=== PATIENT | female | born 1995 | race Caucasian/White ===

== ENCOUNTER 2018-09-14 00:35 | Emergency (ER) | payer MEDICAID ==
[~2018-09-14] VITALS: Wt 56.0 kg
[2018-09-14] MEDS ORDERED: ACETAMINOPHEN 325 MG TAB PO ONE (02:30)
--- NOTE | 2018-09-14 03:38 | ERD ---
ER Documentation Chief Complaint Chief Complaint CP X'S 2 HOURS HPI This is a 23-year-old female with no significant past medical history currently at approximately 22 weeks gestational age who is presenting with left chest and shoulder pain with a sharp aching tingling sensation to the upper arm, exacerbated by movement of the left shoulder. The patient has not noticed any swelling or redness or induration or purulence or fluctuance. She does not endorse any obvious trauma or injury. She does not believe that she hurt herself. She does not endorse any extra exertion. She does not endorse any heavy lifting. The patient's symptoms are not associated with shortness of breath. The patient does not have pleuritic pain. The patient is breathing comfortably and is in no distress in the room. The patient does not have any diaphoresis. She does not have any lightheadedness or dizziness. She does not endorse nausea or vomiting. The patient denies feeling sick recently. The patient denies fever or chills. The patient has had no headache or vision changes. The patient does not endorse neck or back pain. The patient denies abdominal pain. The patient denies changes to bowel movements or urination. The patient has not had any vaginal discharge or burning or bleeding or loss of fluid. She has not had any c ontractions. She is continued to feel the baby move. The patient has had no focal deficits. The patient has had no weakness or numbness or tingling to the face or extremities. ROS All systems reviewed and are negative except as per history of present illness. Medications Home Meds Active Scripts Acetaminophen* (Tylophen*) 500 Mg Capsule, 1 CAP PO Q6H PRN for PAIN AND OR ELEVATED TEMP, #20 CAP Prov:FARA XIONG MD 09/14/18 Allergies Allergies: Coded Allergies: No Known Allergy (Unverified , 09/14/18) PMhx/Soc Medical and Surgical Hx: pt denies Medical Hx, pt denies Surgical Hx History of Surgery: No Anesthesia Reaction: No Hx Neurological Disorder: No Hx Respiratory Disorders: No Hx Cardiac Disorders: No Hx Psychiatric Problems: No Hx Miscellaneous Medical Probl: No Hx Alcohol Use: No Hx Substance Use: No Hx Tobacco Use: No Smoking Status: Never smoker FmHx Family History: No diabetes Physical Exam Vitals Vital Signs Date Temp Pulse Resp B/P (MAP) Pulse Ox O2 O2 Flow FiO2 Time Delivery Rate 09/14/18 76 15 102/62 100 Room Air 04:02 (75) 09/14/18 98.5 94 18 110/84 100 00:53 (93) Physical Exam Const: No apparent distress, well-developed, well-nourished Head: Normocephalic, Atraumatic Eyes: Normal Conjunctiva. Extraocular movements intact. Pupils equal, round and reactive to light ENT: Normal External Ears, Nose and Mouth. Neck: Full range of motion. No meningismus. Resp: Clear to auscultation bilaterally, No wheezes, rales or rhonchi Cardio: Regular rate and rhythm. No murmurs, rubs or gallops Abd: Soft, non tender. Gravid uterus. Normal bowel sounds Skin: No petechiae or rashes Back: No midline tenderness. No CVA tenderness Ext: No cyanosis, or edema Neur: Awake and alert, oriented 4. Cranial nerves intact. No facial droop. Normal strength, sensation and coordination. Psych: Normal Mood and Affect Results 24 hrs Current Medications Medications Dose Sig/Capri Start Time Status Last (Trade) Ordered Route PRN Stop Time Admin Dose Reason Admin 650 mg ONCE ONCE 09/14/18 DC 09/14/18 Acetaminophen PO 02:30 02:28 (Tylenol 09/14/18 02:31 Tab) Procedures/MDM MDM The patient's presentation warrants further investigation. Previous medical records, if available, were reviewed. EKG EKG read by me: Rate/Rhythm: Regular rate and rhythm at a rate of 87 bpm with a sinus arrhythmia Intervals: Normal [place]: Normal Impression: No evidence of acute ischemia or arrhythmia TREATMENT/DISPOSITION The patient was first evaluated in OB triage to assess viability. The patient had a reassuring exam by the obstetric team and was sent to the ER for further assessment of her chest pain. The patient's symptoms are most consistent with a musculoskeletal etiology. The patient's pain is palpable and reproducible on exam and is exacerbated by movement of the left shoulder. The patient does not endorse any trauma or injury. I do not see any evidence concerning for fracture or dislocation. I do not see any evidence of soft tissue infection. The patient's symptoms are not consistent with a DVT. The patient is not tachypneic or hypoxic. The patient is breathing comfortably and without pleuritic pain. The patient is not on hormonal therapy. The patient has no history of clotting or bleeding disorders. The patient has no calf t enderness. She does not have any leg swelling. She is less than 50 years old. She has not had any recent surgery or trauma. The patient has had no hemoptysis. The patient's PERC rule is negative. The chances of this being a pulmonary embolism are less than 2%. I have very low suspicion for pulmonary embolism. The patient's EKG is reassuring. I have low suspicion for acute coronary syndrome. The risks and benefits of an x-ray and were discussed with the patient. The patient ultimately declined the study. The patient's lung exam is normal. She has clear lungs. There are no wheezing or rales or rhonchi. I have low suspicion for pneumonia or pneumothorax or pleural effusions or pulmonary edema. I have low suspicion for thoracic aortic aneurysm or dissection. She does not endorse any nausea or vomiting. She has not had any hemoptysis or hematemesis. I do not suspect esophageal tear or rupture. The patient has no clinical signs of pericardial effusion or tamponade. I have decreased suspicion of viscus perforation as possible referred pain. The patient does not have a history of heart failure and I have low suspicion for this. The patient does not have a diagnosis of COPD and is not wheezing today. The patient was treated with a dose of Tylenol in the ER with improvement of her pain. The patient understands that she should not be utilizing any NSAID medications. Upon reevaluation of the patient, symptoms have improved. No emergent diagnoses were identified. At this time, I feel that the patient stable for discharge. The patient was instructed to follow-up with a primary care physician in 1-3 days. The patient will be given strict precautions with which to return to the emergency department. Prescriptions: Tylenol The patient's blood pressure was elevated at greater than 120/80 while in the emergency department. The patient was otherwise stable with no evidence of hypertensive urgency or emergency. The patient does not require admission for blood pressure control. I have discussed with the patient the risks of hypertension. I have instructed the patient to return to the ER for any new or worsening symptoms including chest pain, shortness of breath, headache, blurred vision, confusion, nausea, vomiting or LOC. I have advised the patient to follow up with the primary care physician for outpatient monitoring and treatment for hypertension in 1-3 days. Disclaimer: Inadvertent spelling and grammatical errors are likely due to EHR/dictation software use and do not reflect on the overall quality of patient care. Note that the electronic time recorded on this note does not necessarily reflect the actual time of the patient encounter. Departure Diagnosis: Primary Impression: Nonspecific chest pain Additional Impressions: Chest wall pain Shoulder pain Chronicity: acute Laterality: left Qualified Codes: M25.512 - Pain in left shoulder Second trimester Condition: Stable FARA XIONG MD Sep 14, 2018 03:38
[2018-09-14] MEDS ORDERED: ACET500C5 PO (03:39)
[2018-09-14 04:02] VITALS: BP 102/62; PULSE 76; RESP 15
== END 2018-09-14 04:03 | disposition home or self-care (01) ==
LOC: E/R 00:35
DX: O99.89 Other specified diseases and conditions complicating pregnancy, childbirth and the puerperium (principal); R07.9 Chest pain, unspecified; M25.512 Pain in left shoulder; Z3A.22 22 weeks gestation of pregnancy
CPT/HCPCS: 93005; Z7502; Z7610

== ENCOUNTER 2018-09-14 01:03 | Outpatient (CLI) | payer MEDICAID ==
--- NOTE | 2018-09-14 01:19 | PN ---
Triage Information Date/Time Reason for visit: Weeks of Gestation 22 weeks /Para Objective Heart Rate Comments Doptones: + Contractions: None Disposition: Discharge Assessment/Plan 23 y/o at 22 weeks with chestpain -no obstetrical issues -discharge to ER for further evaluation as indicated WILLIS ADLER Sep 14, 2018 01:19
--- NOTE | 2018-09-14 01:30 | TRIAGE ---
OB Triage Datetime Report Generated by CPN: 09/14/2018 01:29 Datetime: 09/14/2018 01:25 Time of Arrival: 09/14/2018 00:48 Arrived By: Wheelchair Arrived From: Emergency Dept Chief Complaint: Left shoulder and neck pain Movement: Present Contractions: Denies/Absent Rupture of Membranes: Denies Vaginal Discharge: Denies Recent Sexual Intercouse: Denies Abdominal Trauma: Not Applicable Patient Complaints: Headache Time Provider Notified: 09/14/2018 01:09 Provider Notified: Uaje Initial Plan: Heart Tones, send to ED Datetime: 09/14/2018 01:15 Stage of : OB Triage Assessment Type: Triage Maternal Assessment Level of Consciousness: Fully Conscious Headache: Denies Blurred Vision: No Respiratory Effort: Unlabored; Regular Rhythm; Equal Expansion Nausea/Vomiting: Denies RUQ Epigastric Pain: Denies Facial Edema: None Temperature Route: Oral Fall Risk Assessment History of Falling: (0) No Secondary Diagnosis: (0) No Ambulatory Aid: (0) Bedrest/Nurse Assist IV Therapy: (0) No Gait: (0) Normal/Bedrest/Immobile Mental Status: (0) Oriented to Own Ability Fall Score: 0 Fall Risk Score Definition: No Risk: No action required Datetime: 09/14/2018 01:00 Stage of : OB Triage
[2018-09-14] MEDS ORDERED: ACET500C5 PO (03:39)
== END 2018-09-14 01:31 | disposition home or self-care (01) ==
LOC: OBT 01:03 → L-D 01:11 → OBT 01:31
PROVIDERS: ATTEND Obstetrics & Gynecology
DX: O26.892 Other specified pregnancy related conditions, second trimester (principal); R07.9 Chest pain, unspecified; Z3A.22 22 weeks gestation of pregnancy
CPT/HCPCS: G0463

== ENCOUNTER 2019-01-03 00:05 | Inpatient (IN) | payer MEDICAID, OTHER ==
[~2019-01-03] VITALS: Ht 149.9 cm; Wt 63.4 kg
[~2019-01-03 00:05] MED LIST: ACET500C5 PO
[2019-01-03 00:23] VITALS: Ht 149.9 cm; Wt 63.4 kg
[2019-01-03] MEDS ORDERED: FER325 PO (00:23)
[2019-01-03] MEDS ORDERED: CALC600T24 PO (00:23)
[2019-01-03] MEDS ORDERED: PREN-93 PO (00:23)
[2019-01-03 00:24] VITALS: BP 120/81; PULSE 90; RESP 20
[2019-01-03] MEDS ORDERED: LACTATED RINGER'S 1,000 ML IV PRN (00:41)
[2019-01-03] MEDS ORDERED: IBUPROFEN 600 MG TAB PO PRN (01:00)
[2019-01-03] MEDS ORDERED: METHYLERGONOVINE 0.2 MG INJ IM PRN ×2 (01:00→04:30)
[2019-01-03] MEDS ORDERED: OXYTOCIN 30 UNITS/LR 500 ML IV SCH ×4 (01:00→04:22)
[2019-01-03] MEDS ORDERED: OXYTOCIN 30 UNITS/LR 500 ML IV PRN ×2 (01:00→04:30)
[2019-01-03] MEDS ORDERED: CARBOPROST 250 MCG INJ IM PRN ×2 (01:00→04:30)
[2019-01-03] MEDS ORDERED: LIDOCAINE 1% (MPF) 30 ML INJ INJ PRN (01:00)
[2019-01-03] MEDS ORDERED: MISOPROSTOL 200 MCG TAB PR PRN ×2 (01:00→04:30)
[2019-01-03] MEDS ORDERED: BUTORPHANOL 2 MG INJ IV PRN (01:00)
[2019-01-03] MEDS: LACTATED RINGER'S 1,000 ML IV SCH ×3 (01:10→16:41)
[2019-01-03] MEDS ORDERED: LACTATED RINGER'S 1,000 ML IV SCH ×2 (01:50→04:22)
[2019-01-03] MEDS ORDERED: AZITHROMYCIN 500MG/NS (PMX) 250 ML IV SCH (02:00)
[2019-01-03] MEDS ORDERED: CEFAZOLIN 2 GM/50 ML (PMX) 50 ML IVPB SCH (02:00)
[2019-01-03] MEDS ORDERED: LACTATED RINGER'S 1,000 ML IV ONE (02:13)
--- NOTE | 2019-01-03 02:13 | PREAC ---
Date/Time of Note Date/Time of Note DATE: 01/03/19 TIME: 02:11 Anesthesia Eval and Record Evaluation Time Pre-Procedure Interview DATE: 01/03/19 TIME: 02:11 Age 23 Sex female NPO: 6 hrs (light meal ) Preoperative diagnosis intrauterine ; breech; Planned procedure primary c section Past Medical History Past Medical History: Includes : Gestational age: (39.2) Surgery & Anesthesia Issues No known issue Meds Anticoagulation: No Beta Khushi within 24 hr: No Reason Beta Khushi not given: Pt. not on B-Khushi Active Scripts Acetaminophen* (Tylophen*) 500 Mg Capsule, 1 CAP PO Q6H PRN for PAIN AND OR ELEVATED TEMP, #20 CAP Prov:FARA XIONG MD 09/14/18 Reported Medications Calcium Carbonate* (Calcium Carbonate*) 600 MG Ca Tab, 600 MG PO DAILY, TAB 01/03/19 Vit No.124/Iron/FA ( Vitamin Tablet) 1 Each Tablet, 1 EACH PO DAILY, TAB 01/03/19 Ferrous Sulfate* (Ferrous Sulfate*) 325 Mg Tabec, 325 MG PO DAILY, TAB 01/03/19 Current Medications Lactated Ringer's 1,000 ml @ 125 mls/hr Q8H IV Last administered on 01/03/19at 01:10; Admin Dose 125 MLS/HR; Start 01/03/19 at 00:41 Butorphanol Tartrate (Stadol) 2 mg Q2H PRN IV .PAIN SCALE 6-10; Start 01/03/19 at 01:00 Lidocaine (Xylocaine 1% (Mpf)) 30 ml ONCE PRN INJ .EPISIOTOMY; Start 01/03/19 at 01:00 Oxytocin/Lactated Ringer's 500 ml @ 500 mls/hr ONCE POST IV ; Start 01/03/19 at 01:00 Oxytocin/Lactated Ringer's 500 ml @ 125 mls/hr POST IV ; Start 01/03/19 at 01:00 Ibuprofen (Motrin) 600 mg ONCE PRN PO .PAIN 1-5; Start 01/03/19 at 01:00 Lactated Ringer's 1,000 ml @ 2,000 mls/hr Q30M PRN IV .ANESTHESIA; Start 01/03/19 at 00:41 Oxytocin/Lactated Ringer's 500 ml @ 0 mls/hr ONCE PRN IV .VAGINAL BLEEDING; Start 01/03/19 at 01:00 Methylergonovine Maleate (Methergine) 0.2 mg ONCE PRN IM .VAGINAL BLEEDING; Start 01/03/19 at 01:00 Carboprost Tromethamine (Hemabate) 250 mcg ONCE PRN IM .VAGINAL BLEEDING; Start 01/03/19 at 01:00 Misoprostol (Cytotec) 1,000 mcg ONCE PRN NC .VAGINAL BLEEDING; Start 01/03/19 at 01:00 Oxytocin/Lactated Ringer's 500 ml @ 0 mls/hr FOR AUGMENTATION IV ; Start 01/03/19 at 01:00 Lactated Ringer's 1,000 ml @ 125 mls/hr Q8H IV ; Start 01/03/19 at 01:50 Cefazolin Sodium/ Dextrose 50 ml @ 100 mls/hr ONCE IVPB ; Start 01/03/19 at 02:00 Azithromycin 250 ml @ 250 mls/hr ONCE IV ; Start 01/03/19 at 02:00 Meds reviewed: Yes Allergies Coded Allergies: No Known Allergy (Unverified , 01/03/19) Allergies Reviewed: Yes Labs/Studies Labs Reviewed: Reviewed by anesthesiologist Result Diagram: 01/03/19 0106 Laboratory Tests 01/03/19 01:06 Blood Bank Test 01/03/19 01:06 Antibody Screen NEGATIVE Blood Type A POSITIVE Rh Immune Globulin Candidate NO test: N/A Pre-procedure Exam Last vitals Vital Signs Date Temp Pulse Resp B/P (MAP) Pulse Ox O2 O2 Flow FiO2 Time Delivery Rate 01/03/19 98.5 90 20 120/81 Room Air 00:24 (94) Airway: Adequate mouth opening, Adequate thyromental dist Mallampati: Mallampati II Teeth: Normal Lung: Normal Heart: Normal ASA Physical Status ASA physical status: 2 Emergency: None Planned Anesthetic Neuraxial: Spinal Planned Pain Management Sub-arachniod narcotics, Parenteral pain med Pre-operative Attestations Prior to commencing anesthesia and surgery, the patient was re-evaluated, there was verification of: *The patient's identity *The results of appropriate recent lab work and preoperative vital signs *The above evaluation not changing prior to induction *Anesthetic plan, risk benefits, alternative and complications discussed with patient/family; questions answered; patient/family understands, accepts and wishes to proceed. CORONA AQUINO MD Jan 03, 2019 02:13
--- NOTE | 2019-01-03 02:17 | HP ---
Date/Time of Note Date/Time of Note DATE: 01/03/19 TIME: 02:12 OB - History Hx of Present Free Text/Dictation 23-year-old 1 para 0 at 36 weeks and 6 days of gestation with estimated date of delivery January 25, 2019 presents with spontaneous rupture membranes Patient reports contractions, denies vaginal bleeding, reports positive movement GBS is negative Estimated Due Date: Jan 25, 2019 : 1 Para: 0 Care: Good Care Obstetrical Complications: None Medical Complications: None Past Family/Social History * Past Medical, Surgical, Family and Obstetric Histories reviewed from chart. OB Admission Exam Vital Signs Vital Signs Vital Signs Date Temp Pulse Resp B/P (MAP) Pulse Ox O2 O2 Flow FiO2 Time Delivery Rate 01/03/19 98.5 90 20 120/81 Room Air 00:24 (94) Physical Exam HEENT: WNL Heart: Rhythm Normal Lungs: Clear, Equal Abdomen: WNL Extremities: Normal Reflexes: Normal Cervical Dilatation: 2cm Effacement: 50% Station: -3 Membranes: Ruptured Amniotic Fluid: Clear Heart Rate: 140's Accelerations: Accelerations Present Decelerations: No Decelerations Varibility: Moderate Contractions on Admission: < 5 Minutes Apart Intensity: Moderate Last 72 hours Lab Results CBC & BMP 01/03/19 01:06 PROCEDURE: US OB > 14 weeks. CLINICAL INDICATION: Labor TECHNIQUE: Multiple sonographic images of the pelvis were obtained. The images were reviewed on a PACS workstation. COMPARISON: US 09/16/2018 FINDINGS: There is a single live intrauterine gestation. Cardiac activity is present with 144 beats per minute. Breech presentation. Measurements were made in order to determine age. The results are as follows: BPD = 9.14 cm 37 weeks 1 day HC = 32.07 cm 36 weeks 1 day AC = 33.31 cm 37 weeks 2 days FL = 7.15 cm 36 weeks 4 days Estimated gestational age of approximately 36 weeks 6 days. The estimated date of delivery is 01/25/2019. Estimated weight = 3073 grams (6 lb 12 oz), corresponding to 17th percentile. No anatomic abnormalities demonstrated. The placenta is posterior fundal. There is no evidence for an abruption or abeba centa previa. Amniotic fluid index = 1.6 cm. IMPRESSION: Single live intrauterine gestation measuring approximately 36 weeks 6 days. Estimated date of delivery 01/25/2019. Oligohydramnios with FLEX = 1.6 cm. RPTAT: [facility] Physician Sidney Date Time Electronically viewed and signed by Physician Sidney on 01/03/2019 01:55 xB/ CC: SENA MARTINS MD [phone] OB Assessment/Plan Reason for admission: rupture of membranes (Breech presentation) Other plan: Admit to labor and delivery Plan for primary for breech presentation All benefits and risks were discussed with the patient including but not limited to infection, bleeding which may require blood transfusion, trauma to other organs including bladder and bowel. Patient completely understands her plan of care and agrees to proceed Copies To: CC: JIMENEZ PIERCE MD ; SENA MARTINS MD Jan 03, 2019 02:17
[2019-01-03] MEDS ORDERED: CITRIC ACID/NA CITRATE 30 ML CUP PO ONE (02:30)
[2019-01-03] MEDS ORDERED: METOCLOPRAMIDE 10 MG INJ IV ONE (02:30)
[2019-01-03] MEDS ORDERED: FAMOTIDINE 20 MG INJ IV ONE (02:30)
[2019-01-03] MEDS ORDERED: morphine SULFATE/PF (10 MG/10 ML) INJ ONE (02:57)
[2019-01-03] MEDS ORDERED: ONDANSETRON 4 MG INJ ONE (03:23)
[2019-01-03] MEDS ORDERED: PROCHLORPERAZINE 10 MG INJ IV PRN (03:30)
[2019-01-03] MEDS ORDERED: DIPHENHYDRAMINE 50 MG INJ IV PRN ×2 (03:30→04:30)
[2019-01-03] MEDS ORDERED: ONDANSETRON 4 MG INJ IV PRN ×3 (03:30→04:30)
[2019-01-03] MEDS ORDERED: MEPERIDINE 25 MG INJ IV PRN (03:30)
[2019-01-03] MEDS ORDERED: FENTAnyl 50 MCG/ML VIAL IV PRN ×3 (03:30)
[2019-01-03] MEDS ORDERED: HYDROmorphONE 1 MG/5 ML IV SYRINGE IV PRN ×3 (03:30)
[2019-01-03] MEDS ORDERED: KETOROLAC 30 MG INJ IV PRN (03:30)
[2019-01-03] MEDS ORDERED: PHENYLephrine (100 MCG/ML) 10ML SYG ONE (03:50)
[2019-01-03] MEDS ORDERED: OXYTOCIN 30 UNITS/LR 500 ML IV ONE (03:53)
--- NOTE | 2019-01-03 04:22 | OPR ---
Operative Report Planned Procedure Free Text/Dictation 36 and 6 days of gestation with spontaneous rupture membranes and breech presentation in labor Procedure date Jan 03, 2019 Procedure(s) Primary low transverse section Performed by see signature line Farm Helper: MOSES CHUN MD Pre-procedure diagnosis 36 and 6 days of gestation with spontaneous rupture membranes and breech presentation in labor [id number] Anesthesia Type: Fifll1j spinal Post-Procedure Post-procedure diagnosis 36 and 6 days of gestation with spontaneous rupture membranes and monica breech presentation in labor Findings Live Baby [boy], Apgars [8] and [9], weight [5 pounds 7 ounces/2600 g], [Monica breech] presentation, cord around the neck x2 manually reduced. EBL 500 cc IV fluid 1800 cc Urine output 250 cc Estimated Blood Loss: 400 - 500 mls Specimen(s) none Grafts/Implant(s) none Complication(s) none Pt Condition post procedure: stable Disposition: PACU Procedure Description Patient was taken to the operating room after adequate amount of anesthesia was given patient was prepped and draped in normal sterile fashion Low transverse Pfannenstiel skin incision was made. Incision was carried through to the underlying layer of fascia using Bovie Fascia was incised in the midline and incision was extended bilaterally using Bovie Both anterior and posterior edge of the fascia were from underlying layer of rectus muscles Rectus muscles were in the midline and peritoneum was identified and entered sharply without any difficulty Peritoneum was extended bilaterally manually. An Cain retractor was placed A bladder flap was created. Then a low transverse uterine incision was made on the uterus Fetus was delivered from monica breech presentation and after 30 seconds delayed cord clamping the fetus was handed immediately to the waiting ICU team Placenta was delivered manually intact. Uterus was cleared off of all clots and debris Uterine incision was closed with 1 Vicryl suture in both running locked and a second layer imbricating fashion Multiple irrigations were performed and excellent hemostasis was noted. Both adnexa appeared normal Cain retractor was removed Peritoneal closure proceeded with 2-0 Vicryl in a running fashion. Rectus muscles were reapproximated with 2-0 Vicryl. Excellent hemostasis was confirmed Fascia was closed with 0 Vicryl suture in 2 separate segments in a running fashion Subcutaneous layer was closed with 0- plain suture in a continuous fashion Skin was closed with end-sorb taylor and Dermabond glue All sponge, lap, needle counts were reported to be correct Patient tolerated the procedure well and taken back to recovery room in a stable condition Copies To: CC: JIMENEZ PIERCE MD ; SENA MARTINS MD Jan 03, 2019 04:22
--- NOTE | 2019-01-03 04:27 | PAC ---
Date/Time of Note Date/Time of Note DATE: 01/03/19 TIME: 04:27 Post-Anesthesia Notes Post-Anesthesia Note Last documented vital signs Vital Signs Date Temp Pulse Resp B/P (MAP) Pulse Ox O2 O2 Flow FiO2 Time Delivery Rate 01/03/19 98.5 90 20 120/81 Room Air 00:24 (94) Activity: WNL Respiratory function: WNL Cardiovascular function: WNL Mental status: Baseline Pain reasonably controlled: Yes Hydration appropriate: Yes Nausea/Vomiting absent: Yes Comments BP: 101/60 HR: 80 RR: 15 T: 97.7 SaO2: 98% CORONA AQUINO MD Jan 03, 2019 04:27
[2019-01-03] MEDS ORDERED: ZOLPIDEM 5 MG TAB PO PRN (04:30)
[2019-01-03] MEDS ORDERED: BISACODYL 10 MG SUPP PR PRN (04:30)
[2019-01-03] MEDS ORDERED: NALOXONE (0.4 MG/ML) INJ IV PRN (04:30)
[2019-01-03] MEDS ORDERED: ACETAMINOPHEN 325 MG TAB PO PRN (04:30)
[2019-01-03] MEDS ORDERED: MAGNESIUM HYDROXIDE 30ML CUP PO PRN (04:30)
[2019-01-03] MEDS ORDERED: HYDROmorphONE 0.5 MG/0.5 ML SYG IV PRN ×2 (04:30)
--- NOTE | 2019-01-03 04:37 | TRIAGE ---
OB Triage Datetime Report Generated by CPN: 01/03/2019 04:36 Datetime: 01/03/2019 02:04 Assessment Type: Admission Assessment Vaginal Bleeding: None Maternal Assessment Level of Consciousness: Keenly Alert, Responsive DTR's/Clonus: DTRs 2+; No Clonus Headache: Denies Blurred Vision: No Respiratory Effort: Unlabored; Regular Rhythm; Equal Expansion Breath Sounds, Left: Clear and Equal Breath Sounds, Right: Clear and Equal Nausea/Vomiting: Denies RUQ Epigastric Pain: Denies Lower Extremities Edema: None Upper Extremities Edema: None Facial Edema: None Fall Risk Assessment History of Falling: (0) No Secondary Diagnosis: (0) No Ambulatory Aid: (0) Bedrest/Nurse Assist IV Therapy: (20) Yes Gait: (0) Normal/Bedrest/Immobile Mental Status: (0) Oriented to Own Ability Fall Score: 20 Fall Risk Score Definition: No Risk: No action required Pain Assessment Pain Scale: 4 Pain Presence: Intermittent Pain Type: Contraction Pain Location: Abdomen Datetime: 01/03/2019 01:00 Labor Evaluation Frequency: 2-5.5 Monitor Mode: External Duration (sec)2399: 40-110 Quality: Mild Pattern: Normal: <= 5 Contractions in 10 Minutes Resting Tone [place]: Relaxed Heart Rate FHR Baseline Rate: 130 Monitor Mode: External US Variability: Moderate 6-25 bpm Accelerations: 15X15 Decelerations: None Category: Category I Datetime: 01/03/2019 00:34 Vaginal Exam Dilatation (cms): 1.5 Effacement (%): 60 Station: -3 Exam By: ASMITA Naranjo Membrane Status: Ruptured Membranes Ruptured Date/Time: 01/02/2019 23:30 Membranes Rupture Method: Spontaneous Amniotic Fluid Color: Clear Amniotic Fluid Amount: Moderate Amniotic Fluid Odor: Normal Vaginal Bleeding: Scant Nitrazine: Positive Cervix, Consistency: Moderate Cervix, Position: Posterior Datetime: 01/03/2019 00:19 Time of Arrival: 01/03/2019 00:00 EGA: 39.1 Arrived By: Wheelchair Arrived From: Home Chief Complaint: Possible SROM with bleeding Movement: Present Contractions: Irregular Time Contractions Began: 01/03/2019 00:00 Rupture of Membranes: Unsure Vaginal Bleeding: Small Vaginal Discharge: Present Abdominal Trauma: Not Applicable Patient Complaints: Cramping; Other Time Provider Notified: 01/03/2019 00:43 Provider Notified: Initial Plan: Nitrazine, VE Datetime: 01/03/2019 00:13 Stage of : OB Triage Assessment Type: Triage Maternal Assessment Level of Consciousness: Keenly Alert, Responsive DTR's/Clonus: DTRs 2+; No Clonus Headache: Denies Blurred Vision: No Respiratory Effort: Unlabored; Regular Rhythm; Equal Expansion Breath Sounds, Left: Clear and Equal Breath Sounds, Right: Clear and Equal Nausea/Vomiting: Denies RUQ Epigastric Pain: Denies Lower Extremities Edema: None Degree: None Upper Extremities Edema: None Degree: None Facial Edema: None Temperature Route: Oral Fall Risk Assessment History of Falling: (0) No Secondary Diagnosis: (0) No Ambulatory Aid: (0) Bedrest/Nurse Assist IV Therapy: (0) No Gait: (0) Normal/Bedrest/Immobile Mental Status: (0) Oriented to Own Ability Fall Score: 0 Fall Risk Score Definition: No Risk: No action required Pain Assessment Pain Scale: 2 Pain Presence: Intermittent Pain Type: Cramping Pain Location: Abdomen Pain Relief Measures: Comfort Measures Datetime: 01/03/2019 00:11 Stage of : OB Triage Monitor Mode: External Contraction Comments: [place] applied Heart Rate FHR Baseline Rate: 130 Monitor Mode: External US Comments: EFM applied Datetime: 09/14/2018 01:25 EGA: 23.3 Datetime: 09/14/2018 01:16 Membranes Ruptured Date/Time: 01/02/2019 23:30 Presentation 'A': Breech Datetime: 09/14/2018 01:15 Fall Score: 0 Fall Risk Score Definition: No Risk: No action required
[2019-01-03 08:00] VITALS: BP 116/64; PULSE 75; RESP 20
[2019-01-03] MEDS: CEFAZOLIN 1 GM/50 ML (PMX) 50 ML IVPB SCH ×2 (12:18→21:33)
[2019-01-03] MEDS: KETOROLAC 30 MG INJ IV PRN (17:03)
[2019-01-03 20:15] VITALS: BP 112/76; PULSE 74; RESP 18
[2019-01-03] MEDS: LANOLIN HPA 1 PKT TOP PRN (21:34)
[2019-01-03] MEDS: SENNA/DOCUSATE NA (8.6MG/50MG) TAB PO PRN (21:34)
[2019-01-04] MEDS: LACTATED RINGER'S 1,000 ML IV SCH ×2 (00:41→07:36)
[2019-01-04] MEDS: KETOROLAC 30 MG INJ IV PRN (01:35)
[2019-01-04] MEDS ORDERED: OXYCODONE/ACETAMINOPHEN (5/325) TAB PO PRN (03:07)
[2019-01-04 03:41] VITALS: BP 107/64; PULSE 84; RESP 18
[2019-01-04] MEDS: CEFAZOLIN 1 GM/50 ML (PMX) 50 ML IVPB SCH (04:24)
[2019-01-04 08:00] VITALS: BP 105/88; PULSE 71; RESP 18
[2019-01-04] MEDS: SENNA/DOCUSATE NA (8.6MG/50MG) TAB PO PRN (08:50)
[2019-01-04] MEDS: OXYCODONE/ACETAMINOPHEN (5/325) TAB PO PRN ×2 (08:50→16:40)
[2019-01-04] MEDS: LANOLIN HPA 1 PKT TOP PRN (09:28)
--- NOTE | 2019-01-04 11:30 | QN ---
Documentation Comment POD#1 is stable afebrile tolerates diet No VB +Flatus +voids VS stable Gen NAD Abd soft NT ND Dressing to be removed Genitalia No blood at perineum --->Ambulation HILARIO ESCAMILLA M.D. Jan 04, 2019 11:30
[2019-01-04] MEDS: IBUPROFEN 600 MG TAB PO PRN ×2 (11:53→23:33)
[2019-01-04 16:00] VITALS: BP 103/69; PULSE 80; RESP 20
[2019-01-04 19:40] VITALS: BP 116/66; PULSE 82; RESP 17
[2019-01-05] MEDS: OXYCODONE/ACETAMINOPHEN (5/325) TAB PO PRN ×2 (00:27→11:33)
[2019-01-05 04:15] VITALS: BP 99/61; PULSE 80; RESP 17
[2019-01-05] MEDS: IBUPROFEN 600 MG TAB PO PRN ×3 (05:40→19:39)
[2019-01-05 08:00] VITALS: BP 108/62; PULSE 82; RESP 16
--- NOTE | 2019-01-05 09:42 | PD.PPDC ---
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 Instruction Condition [id number] Patient Condition: Euryh7i Fair Diet [id number] Diet: [id number] Resume Regular Diet Activity/Restrictions [id number] Activity: Mfccm4l Normal Activity May Shower [id number] Restrictions: Ixikh8i No Exercising No Lifting No Driving No Sexual Activity Nothing in the Vagina No [place] No Tampons, douche Follow-up Follow-up with Physician: 2, Week/Weeks Return to clinic for [id number] BEATER OUT Instructions: Fbrke4v Fever greater than 101 Chills Worsening abdominal pain Excessive Vaginal Bleeding More than 2 pads per hour Unable to tolerate diet Iisfp2Se OB Instructions: Tshhg5j Breast Tenderness Depression Blurried Vision Headache Zmbzs5Al Surgical Instructions: Yldeh3w Incisional Drainage Incisional Redness JIMENEZ PIERCE MD Jan 05, 2019 09:42
--- NOTE | 2019-01-05 09:42 | QN ---
Documentation Comment progress note pod 1 patient seen and evaluated no complaints vs stable afebrile ab c/d/i no distention nt extremity no edema no calf tenderness a/ sp primary cd pod 2 stable afebrile p discharge home tomorrow JIMENEZ PIERCE MD Jan 05, 2019 09:42
[2019-01-05 15:45] VITALS: BP 110/61; PULSE 93; RESP 16
[2019-01-06 03:37] VITALS: BP 106/62; PULSE 85; RESP 17
[2019-01-06] MEDS: IBUPROFEN 600 MG TAB PO PRN (05:32)
[2019-01-06 08:25] VITALS: BP 109/67; PULSE 84; RESP 16
--- NOTE | 2019-01-06 08:49 | DS ---
DATE OF ADMISSION: 01/03/2019 DATE OF DISCHARGE: PRIMARY DIAGNOSIS: Intrauterine at 36 weeks and 6 days gestational age with spontaneous ru pture of membranes, breech presentation in labor. PROCEDURE: Primary low transverse delivery. CONDITION ON DISCHARGE: Stable. ACTIVITY: None per vagina, no heavy lifting x6 weeks. DIET: Regular. MEDICATIONS ON DISCHARGE: 1. Motrin. 2. Iron. 3. Colace. DISCHARGE SUMMARY: Ms. Natasha Lebron underwent a primary delivery on 01/03/2019. She h ad a viable male, 8 and 9 respectively at 1 and 5 minutes, weight 6 pounds 7 ounces in monica br eech presentation. She had an uneventful postop day 1 and 2. She was discharged on postop day 3. H er incision is clean, dry, and intact. She is ambulating, tolerating diet, positive flatulence and p ositive bowel movement. She will follow up in clinic in 2 weeks for /postop care. Dictated By: JIMENEZ LUONG/CARMEN Conf#: [id number] DID#: [id number] CC: SENA MARTINS MD;*EndCC*
[2019-01-06] MEDS: OXYCODONE/ACETAMINOPHEN (5/325) TAB PO PRN (10:38)
--- NOTE | 2019-01-07 13:52 | DELSUM ---
Delivery Summary A-C Datetime Report Generated by CPN: 01/07/2019 13:51 DELIVERY PERSONNEL Communication Instructor: Kirk, Lucita MATERNAL INFORMATION Delivery Anesthesia: Spinal Medications in Delivery: SEE ANESTHESIA RECORD Delivery QBL (ml): 500 Placenta Cultured: No Maternal Complications: None LABOR SUMMARY EDC: 01/08/2019 00:00 No. Babies in Womb: 1 Attempted: No Labor Anesthesia: None LABOR INFORMATION Reason for Induction: Not Applicable Onset of Labor: 01/02/2019 23:30 Oxytocin: N/A Group B Beta Strep: Negative Antibiotics # of Doses: X2 Antibiotics Time of Last Dose: 01/03/2019 03:15 Steroids Given: None Reason Steroids Not Administered: Not Applicable MEMBRANES Membranes Rupture Method: Spontaneous Rupture of Membranes: 01/02/2019 23:30 Length of Rupture (hr): 4.13 Amniotic Fluid Color: Clear Amniotic Fluid Amount: Moderate Amniotic Fluid Odor: Normal STAGES OF LABOR Stage 3 hr: 0 Stage 3 min: 1 Total Time in Labor hr: 4 Total Time in Labor min: 9 CSECTION DELIVERY Primary Indication: Breech Presentation Secondary Indication: N/A CSection Urgency: Non Elective CSection Incidence: Primary Labor: Labor Elective: Nonelective CSection Incision: Lower Uterine Transverse BABY A INFORMATION Infant Delivery Date/Time: 01/03/2019 03:38 Method of Delivery: Born in Route : No : N/A Forceps: N/A Vacuum Extraction: N/A Shoulder Dystocia : N/A SHOULDER DYSTOCIA BABY A Infant Delivery Date/Time: 01/03/2019 03:38 PRESENTATION/POSITION BABY A Presentation: Breech Cephalic Presentation: N/A Breech Presentation: Jacinto PLACENTA INFORMATION BABY A Placenta Delivery Time : 01/03/2019 03:39 Placenta Method of Delivery: Spontaneous Placenta Status: Delivered SCORES BABY A Heart Rate 1 min: >100 bpm Resp Effort 1 min: Good Cry Reflex Irritability 1 min: Cough/Sneeze/Pulls Away Muscle Tone 1 min: Active Motion Color 1 min: Blue/Pale Resuscitation Effort 1 min: Tactile Stimulation SCORE 1 MIN: 8 Heart Rate 5 min: >100 bpm Resp Effort 5 min: Good Cry Reflex Irritability 5 min: Cough/Sneeze/Pulls Away Muscle Tone 5 min: Active Motion Color 5 min: Body [place], Extremit Blue Resuscitation Effort 5 min: Tactile Stimulation SCORE 5 MIN: 9 INFORMATION BABY A Gestational Age at Delivery: 36.6 Gestational Status: Late - 34- 36.6 Weeks Infant Outcome : Liveborn Infant Condition : Stable Infant Sex: Male IDENTIFICATION/MEDS BABY A ID Band Number: [id number] ID Band Location: Right Leg; Left Arm Sensor Applied: Yes Sensor Number: [id number] Sensor Location : Cord Clamp Vitamin K Given : Not Given Erythromycin Given: Not Given WEIGHT/LENGTH BABY A Birthweight (gm): 2600 Weight (lb): 5 Infant Weight (oz): 12 Infant Length (in): 19.50 Length (cm): 49.53 CORD INFORMATION BABY A No. Cord Vessels: 3 Nuchal Cord : Around Neck x2, Tight Cord Blood Taken: Yes Suction: Mouth; Nose ASSESSMENT BABY A Complications: None Physical Findings at Delivery: Within Normal Limits Respirations: Appears Normal Guzzler Builder/ALS Called : No Care By: LENCHO Transferred To: Remains with Mother
== END 2019-01-06 11:35 | disposition home or self-care (01) | DRG 788 ==
LOC: L-D 00:05 → OBT 00:05 → L-D 00:43 → OBT 00:43 → L-D 02:52 → PP1 08:00
PROVIDERS: ADMIT Obstetrics & Gynecology Gynecology; ATTEND Obstetrics & Gynecology
PROC: 10D00Z1 Extraction of Products of Conception, Low, Open Approach (ICD-10-PCS; principal; 2019-01-03 03:00)
DX: O32.1XX0 Maternal care for breech presentation, not applicable or unspecified (principal); Z3A.36 36 weeks gestation of pregnancy; Z37.0 Single live birth
CPT/HCPCS: 36415; 76815; 80053; 85025; 85610; 85730; 86592; 86850; 86900; 86901; 99464; G0463; J0456; J0690; J1170; J1885; J2274; J2370; J2405; J2590; J2765; J7120

== ENCOUNTER 2019-03-07 21:01 | Emergency (ER) | payer OTHER ==
[~2019-03-07] VITALS: Ht 149.9 cm; Wt 58.7 kg
[~2019-03-07 21:01] MED LIST changes: -ACET500C5 PO; +DIPH25CA6 PO; +FER325 PO; +HYDR-842 PO; +MED4DP PO; +PRED20TA PO; +PREN-93 PO; +TRIA15CR55 TOP
[2019-03-07 21:12] VITALS: BP 134/63; PULSE 60; RESP 16; Ht 149.9 cm; Wt 58.7 kg
[2019-03-07] MEDS ORDERED: predniSONE 20 MG TAB PO ONE (22:30)
[2019-03-07] MEDS ORDERED: DIPHENHYDRAMINE 25 MG CAP PO ONE (22:30)
== END 2019-03-07 22:33 | disposition home or self-care (01) ==
LOC: FTE 21:01
DX: L30.9 Dermatitis, unspecified (principal)
CPT/HCPCS: J7512; Z7502; Z7610; 99283

== ENCOUNTER 2019-03-11 21:50 | Emergency (ER) | payer OTHER ==
[~2019-03-11] VITALS: Ht 149.9 cm; Wt 60.4 kg
[2019-03-11 22:06] VITALS: BP 118/62; PULSE 87; RESP 16; Ht 149.9 cm; Wt 60.4 kg
[2019-03-12] MEDS ORDERED: DEXAMETHASONE 10 MG/ML 1 ML INJ IM ONE (00:30)
[2019-03-12] MEDS ORDERED: DIPHENHYDRAMINE 50 MG INJ IM ONE (00:30)
== END 2019-03-12 01:07 | disposition home or self-care (01) ==
LOC: FTE 21:50
DX: R21 Rash and other nonspecific skin eruption (principal)
CPT/HCPCS: 96372; J1100; J1200; Z7502